=== PATIENT | male | born 1935 | race Caucasian/White ===

== ENCOUNTER 2019-02-22 15:14 | Emergency (ER) | payer BC ==
[~2019-02-22] VITALS: Ht 162.6 cm; Wt 61.8 kg
[2019-02-22 15:44] VITALS: Ht 162.6 cm; Wt 61.8 kg
[2019-02-22] MEDS ORDERED: TENORMIN50 MG PO (15:47)
[2019-02-22] MEDS ORDERED: ATIVAN1 MG PO (15:48)
[2019-02-22] MEDS ORDERED: CHOLESTEROL MED (15:48)
[2019-02-22] MEDS ORDERED: IBUPROFEN800 MG PO (17:43)
[2019-02-22] MEDS ORDERED: PREDNISONE10 MG PO ×2 (17:43→17:45)
[2019-02-22] MEDS ORDERED: CYCLOBENZAPRINE10 MG PO (17:43)
[2019-02-22 18:24] VITALS: BP 142/78
== END 2019-02-22 18:29 | disposition home or self-care (01) ==
LOC: D.ER 15:14
DX: S39.012A Strain of muscle, fascia and tendon of lower back, initial encounter (principal); X58.XXXA Exposure to other specified factors, initial encounter; Y93.9 Activity, unspecified; Y92.89 Other specified places as the place of occurrence of the external cause; M54.31 Sciatica, right side; S76.011A Strain of muscle, fascia and tendon of right hip, initial encounter